=== PATIENT | male | born 1995 | race Caucasian/White ===

== ENCOUNTER 2017-09-29 16:11 | Emergency (ER) | payer OTHER, BC ==
[~2017-09-29] VITALS: Ht 182.8 cm; Wt 81.6 kg
== END 2017-09-29 17:10 | disposition home or self-care (01) ==
LOC: ED 16:11
DX: S61.411A Laceration without foreign body of right hand, initial encounter (principal); W23.0XXA Caught, crushed, jammed, or pinched between moving objects, initial encounter; Y93.89 Activity, other specified; Y92.69 Other specified industrial and construction area as the place of occurrence of the external cause; Y99.9 Unspecified external cause status